=== PATIENT | male | born 1980 | race Asian ===

== ENCOUNTER 2020-01-18 13:06 | Emergency (ER) | payer OTHER ==
[~2020-01-18] VITALS: Ht 175.3 cm; Wt 127.3 kg
[2020-01-18 13:22] VITALS: BP 139/77
[2020-01-18 14:07] LABS: COVID AG,FIA SOURCE NASOPHARYNGEAL
== END 2020-01-18 13:23 | disposition home or self-care (01) ==
LOC: EMS 13:12
DX: J02.9 Acute pharyngitis, unspecified (principal); Z20.828 Contact with and (suspected) exposure to other viral communicable diseases
CPT/HCPCS: 87426; 99283; U0003